=== PATIENT | male | born 1990 | race Caucasian/White ===

== ENCOUNTER 2016-03-22 20:16 | Emergency (ER) | payer OTHER ==
[~2016-03-22] VITALS: Ht 175.3 cm; Wt 60.6 kg
[2016-03-22 20:21] VITALS: TEMP 37; Ht 175.3 cm; Wt 60.6 kg
[2016-03-22] MEDS ORDERED: OXYCODONE HCL IR 5 MG TAB (IMMEDIATE RELEASE) PO STA (20:47)
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
[2016-03-22 22:42] VITALS: BP 114/79; PULSE 98; O2SAT 99
== END 2016-03-22 22:43 | disposition home or self-care (01) ==
LOC: C.EDB 20:17
DX: S00.83XA Contusion of other part of head, initial encounter (principal); S10.93XA Contusion of unspecified part of neck, initial encounter; S00.03XA Contusion of scalp, initial encounter; S30.0XXA Contusion of lower back and pelvis, initial encounter; T14.8 Other injury of unspecified body region; Y04.8XXA Assault by other bodily force, initial encounter; Y92.148 Other place in prison as the place of occurrence of the external cause; Y99.0 Civilian activity done for income or pay; Z72.0 Tobacco use